=== PATIENT | female | born 1970 | race Caucasian/White ===

== ENCOUNTER → 2021-02-01 | Outpatient (CLI) | payer OTHER ==
[2021-02-01 15:51] LABS: HEMOGLOBIN 15.7 gm/dl (12.3-15.3); RED BLOOD COUNT 4.79 M/UL (4.00-5.10); WHITE BLOOD COUNT 8.1 K/UL (4.5-11.0)
[2021-02-01 16:24] LABS: BUN/CREATININE RATIO 13 (0-10)
[2021-02-02 08:15] LABS: VITAMIN D, 25-HYDROXY 41.7 ng/mL (30.0-100.0)
[2021-02-02 09:15] LABS: HBSAG SCREEN Negative (Negative); HEP A AB, IGM Negative (Negative); HEP B CORE AB, IGM Negative (Negative); HEP C VIRUS AB <0.1 (0.0-0.9)
== END ==
LOC: LAB 15:05
PROVIDERS: Nurse Practitioner Family
DX: R07.9 Chest pain, unspecified (principal); I11.9 Hypertensive heart disease without heart failure; G43.009 Migraine without aura, not intractable, without status migrainosus; I45.10 Unspecified right bundle-branch block; R94.31 Abnormal electrocardiogram [ECG] [EKG]
CPT/HCPCS: 36415; 80053; 80074; 82550; 82553; 82607; 83036; 84439; 84443; 84484; 85025; 85379; 85652; 86140; 93005